=== PATIENT | male | born 1995 | race Hispanic/Latino ===

== ENCOUNTER 2021-02-01 20:18 | Inpatient (IN) | payer SELFPAY ==
[~2021-02-01 20:18] MED LIST: Iopamidol-370 76% 500 ML 1 ML ONE
[2021-02-01] MEDS ORDERED: PROVENTIL INHALER 6.7 G (200 INHALATIONS) ONE (22:03)
[2021-02-01] MEDS ORDERED: Albuterol 200 PUFF (6.7GM INHALER) ONE (22:06)
[2021-02-01] MEDS ORDERED: Dexamethasone 10 MG/ML VIAL ONE (23:12)
[2021-02-01 23:22] LABS: #Lymphocytes 1.1 thou/uL (1.20-3.40); #Monocytes 0.3 thou/uL (0.11-0.59); #Neutrophils 4.8 thou/uL (1.40-6.50); %Basophils 0.5 % (0.0-1.0); %Eosinophils 0.1 % (0.0-10.0); %Lymphocytes 17.8 % (21.0-51.0); %Monocytes 4.5 % (0.0-10.0); %Neutrophils 77.1 % (42.0-75.0); Hemoglobin 17.4 g/dL (14.0-18.0); Mean Corpuscular HGB CONC 35.3 g/dL (32.0-36.0); Mean Corpuscular Hemoglobin 30.4 pg (27.0-31.0); Mean Corpuscular Volume 86.1 fL (78.0-98.0); Mean Platelet Volume 9.9 fL (7.4-10.4); Platelet Count 122 thou/uL (130-400); RBC Distribution Width 11.6 % (11.5-14.5); Red Blood Cell (RBC) Count 5.73 mill/uL (4.70-6.10); White Blood Cell (WBC) Count 6.2 thou/uL (4.8-10.8)
[2021-02-01 23:48] LABS: ALT (SGPT) 37 U/L (8-55); AST (SGOT) 54 U/L (5-34); Alkaline Phosphatase 46 U/L (40-110); Anion Gap 11 mmol/L (10-20); BUN (Urea Nitrogen) 8 mg/dL (8.9-20.6); Bilirubin, Total 0.3 mg/dL (0.2-1.2); Calc. Creatinine Clearance 0 mL/min (70-130); Calcium 9.4 mg/dL (7.8-10.44); Carbon Dioxide 28 mmol/L (22-29); Chloride 101 mmol/L (98-107); Globulin 4.4 g/dL (2.4-3.5); Glucose 116 mg/dL (70-105); Potassium 4.2 mmol/L (3.5-5.1); Protein, Total 8.4 g/dL (6.0-8.3); Sodium 136 mmol/L (136-145)
[2021-02-02 00:27] LABS: SARS-CoV-2 NAA Rapid Test DETECTED (NotDetected)
[2021-02-02] MEDS ORDERED: cefTRIAXone\\ROCEPHIN 1 GM VIAL ONE (00:53)
[2021-02-02] MEDS ORDERED: Azithromycin 500 MG VIAL ONE (00:55)
[2021-02-02] MEDS ORDERED: Acetaminophen 325 MG TAB PO PRN (01:24)
[2021-02-02] MEDS ORDERED: HYDROcodone/Acetaminophen 5/325 mg Tablet PO PRN (01:24)
[2021-02-02] MEDS ORDERED: Ondansetron PF 4 MG/2 ML Vial IVP PRN (01:24)
[2021-02-02] MEDS ORDERED: Guaifenesin DM 100-10/5 ML UDCUP PO PRN (01:24)
[2021-02-02] MEDS ORDERED: HYDROcodone/Acetaminophen 7.5/325 mg Tablet PO PRN (01:24)
[2021-02-02] MEDS ORDERED: Pharmacy to Dose REMDESIVIR IVPB PRN (01:31)
[2021-02-02] MEDS ORDERED: Lorazepam 2 MG/ML VIAL SLOW IVP PRN (01:36)
[2021-02-02] MEDS ORDERED: Enoxaparin Sodium 40 MG/0.4 ML SYRINGE SC SCH (02:00)
[2021-02-02] MEDS ORDERED: Lactinex Tablet PO SCH (02:30)
[2021-02-02] MEDS ORDERED: Albuterol Sulfate 1.25 MG/3 ML NEB INH PRN (02:44)
[2021-02-02] MEDS ORDERED: Albuterol 200 PUFF (6.7GM INHALER) INH PRN (02:46)
[2021-02-02 03:00] VITALS: BMI 31.4
[2021-02-02 04:48] LABS: #Lymphocytes 0.7 thou/uL (1.20-3.40); #Monocytes 0.1 thou/uL (0.11-0.59); #Neutrophils 4.5 thou/uL (1.40-6.50); %Eosinophils 0.1 % (0.0-10.0); %Lymphocytes 12.4 % (21.0-51.0); %Monocytes 1.2 % (0.0-10.0); %Neutrophils 86.3 % (42.0-75.0); Mean Corpuscular HGB CONC 34.8 g/dL (32.0-36.0); Mean Corpuscular Volume 86.2 fL (78.0-98.0); Mean Platelet Volume 9.4 fL (7.4-10.4); Platelet Count 114 thou/uL (130-400); RBC Distribution Width 11.7 % (11.5-14.5); Red Blood Cell (RBC) Count 5.02 mill/uL (4.70-6.10); White Blood Cell (WBC) Count 5.2 thou/uL (4.8-10.8)
[2021-02-02 04:53] LABS: Hemoglobin A1c 5.6 % (4.0-6.0)
[2021-02-02 05:09] LABS: ALT (SGPT) 32 U/L (8-55); AST (SGOT) 43 U/L (5-34); Albumin 3.3 g/dL (3.5-5.0); Alkaline Phosphatase 39 U/L (40-110); Anion Gap 11 mmol/L (10-20); BUN (Urea Nitrogen) 7 mg/dL (8.9-20.6); Bilirubin, Total 0.2 mg/dL (0.2-1.2); Calc. Creatinine Clearance 226 mL/min (70-130); Calcium 8.2 mg/dL (7.8-10.44); Carbon Dioxide 23 mmol/L (22-29); Chloride 106 mmol/L (98-107); Globulin 3.6 g/dL (2.4-3.5); Glucose 132 mg/dL (70-105); Potassium 3.8 mmol/L (3.5-5.1); Protein, Total 6.9 g/dL (6.0-8.3); Sodium 136 mmol/L (136-145)
[2021-02-02] MEDS ORDERED: REMDESIVIR 200 MG in Sodium Chloride 0.9% 250 ML 210 ML IV SCH (09:00)
[2021-02-02] MEDS: Lactinex Tablet PO SCH ×3 (09:07→20:03)
[2021-02-02] MEDS: Cholecalciferol (Vitamin D3) 400 UNITS TAB PO SCH (09:08)
[2021-02-02] MEDS: Enoxaparin Sodium 40 MG/0.4 ML SYRINGE SC SCH (09:08)
[2021-02-02] MEDS: Zinc Sulfate 220 MG CAP PO SCH (09:08)
[2021-02-02] MEDS: Ascorbic Acid 500 mg Chewable Tablet PO SCH (09:08)
[2021-02-02] MEDS: Dexamethasone 10 MG/ML VIAL SLOW IVP SCH (09:10)
[2021-02-02] MEDS: Zolpidem Tartrate 5 MG TAB PO PRN (20:07)
[2021-02-03] MEDS: cefTRIAXone\\ROCEPHIN 2 GM in Sodium Chloride 0.9% 100 ML IVPB SCH (01:23)
[2021-02-03] MEDS: Azithromycin 1,000 MG in Sodium Chloride 0.9% 500 ML IVPB SCH (02:07)
[2021-02-03] MEDS: Enoxaparin Sodium 40 MG/0.4 ML SYRINGE SC SCH (08:41)
[2021-02-03] MEDS: Dexamethasone 10 MG/ML VIAL SLOW IVP SCH (08:41)
[2021-02-03] MEDS: Ascorbic Acid 500 mg Chewable Tablet PO SCH (08:41)
[2021-02-03] MEDS: Zinc Sulfate 220 MG CAP PO SCH (08:41)
[2021-02-03] MEDS: Lactinex Tablet PO SCH ×3 (08:41→20:04)
[2021-02-03] MEDS: Cholecalciferol (Vitamin D3) 400 UNITS TAB PO SCH (08:41)
[2021-02-03] MEDS ORDERED: REMDESIVIR 100 MG in Sodium Chloride 0.9% 250 ML 230 ML IV SCH (09:00)
[2021-02-03] MEDS: Zolpidem Tartrate 5 MG TAB PO PRN (20:04)
[2021-02-04] MEDS: Azithromycin 1,000 MG in Sodium Chloride 0.9% 500 ML IVPB SCH (01:19)
[2021-02-04] MEDS: cefTRIAXone\\ROCEPHIN 2 GM in Sodium Chloride 0.9% 100 ML IVPB SCH (01:23)
[2021-02-04] MEDS: Enoxaparin Sodium 40 MG/0.4 ML SYRINGE SC SCH (10:02)
[2021-02-04] MEDS: Ascorbic Acid 500 mg Chewable Tablet PO SCH (10:02)
[2021-02-04] MEDS: Dexamethasone 10 MG/ML VIAL SLOW IVP SCH (10:02)
[2021-02-04] MEDS: Lactinex Tablet PO SCH ×2 (10:02→19:13)
[2021-02-04] MEDS: Cholecalciferol (Vitamin D3) 400 UNITS TAB PO SCH (10:03)
[2021-02-04] MEDS: Zinc Sulfate 220 MG CAP PO SCH (10:03)
[2021-02-04 16:10] VITALS: BP 134/72; TEMP 98.9
== END 2021-02-04 18:30 | disposition home or self-care (01) | DRG 871 ==
LOC: ERS 20:18 → ERHOLD 02-02 00:53 → 2SE 02-02 02:24
PROVIDERS: ADMIT Student in an Organized Health Care Education/Training Program; ATTEND Internal Medicine
PROC: XW033E5 Introduction of Remdesivir Anti-infective into Peripheral Vein, Percutaneous Approach, New Technology Group 5 (ICD-10-PCS; principal; 2021-02-02)
PROC: 8E0ZXY6 Isolation (ICD-10-PCS; 2021-02-02)
PROC: 3E0333Z Introduction of Anti-inflammatory into Peripheral Vein, Percutaneous Approach (ICD-10-PCS; 2021-02-02)
DX: A41.89 Other specified sepsis (principal); U07.1 COVID-19; J12.82 Pneumonia due to coronavirus disease 2019; J96.01 Acute respiratory failure with hypoxia; F41.9 Anxiety disorder, unspecified; Z79.899 Other long term (current) drug therapy
CPT/HCPCS: 0240U; 36415; 71045; 71275; 80053; 83036; 83605; 85025; 85379; 86140; 87040; J0456; J0696; J1100; J1650; J3490; J7030; J7050; Q9967